=== PATIENT | female | born 1960 | race African-American/Black ===

== ENCOUNTER → 2018-07-09 | Emergency (ER) | payer OTHER ==
[~2018-07-09] VITALS: Ht 172.7 cm; Wt 81.6 kg
[~2018-07-09] MED LIST: ACETAMINOPHEN-1 EAC1 ORAL; AFRIN NASAL SPR30 ML NASAL; AMOXICILLI400 MG/5 M ORAL; AUGMENTIN 875-1 EAC1 ORAL; CLINDAMYCIN HC300 MG ORAL; NORCO 5-325 TA1 EACH ORAL; PERCOCET 5-3251 EACH ORAL; PRILOSEC20 MG ORAL; TRAMADOL HCL50 MG ORAL; TYLENOL EXTRA500 MG ORAL; Tylenol #3 tab (300mg/30mg) ORAL ONE; ZOFRAN4 MG ORAL
--- NOTE | 2018-07-09 18:48 | Emergency Room Report ---
History of Present Illness General Chief Complaint: To Be Triaged Present Illness HPI 58 YO Female presents to the ED c/o 03/07 in severity sharp right inner ear pain with nasal congestion x 1 week. pt. has been using abx ear drops without relief. reports only low grade fevers. Pt. reports muffled hearing in the affected ear. Denies q-tip use or ear trauma. Pt. also reports ST x 4 days. Denies Ear d/c. Denies neck pain or stiffness. Denies HOWARD. Allergies: Coded Allergies: NO KNOWN ALLERGIES (Unverified Allergy, Unknown, 07/09/18) Patient History Past Medical History: see triage record Past Surgical History: none Pertinent Family History: none Now: No Reviewed Nursing Documentation: PMH: Agreed; PSxH: Agreed Review of Systems All Other Systems: negative except mentioned in HPI Physical Exam Sp02 EP Interpretation: reviewed, normal General Appearance: no apparent distress, alert, GCS 15, non-toxic Head: normocephalic, atraumatic Eyes: bilateral eye normal inspection, bilateral eye PERRL ENT: hearing grossly normal, normal pharynx, normal voice, moist mucus membranes, nasal congestion, other - Right TM is bulging. irregular pneumatic exam. no D/c Noted. Neck: full range of motion Respiratory: lungs clear, normal breath sounds, speaking full sentences Cardiovascular #1: regular rate, rhythm Musculoskeletal: back normal, gait/station normal, normal range of motion, non- tender Neurologic: alert, oriented x3, responsive, motor strength/tone normal, sensory intact, speech normal, grossly normal Psychiatric: judgement/insight normal Skin: normal color, no rash, warm/dry, well hydrated Lymphatic: no adenopathy Medical Decision Making PA Attestation Dr. muniz is my supervising Physician whom patient management has been discussed with. Diagnostic Impression: Primary Impression: Otitis media Qualified Codes: H66.90 - Otitis media, unspecified, unspecified ear Additional Impression: Tympanic membrane irritation Qualified Codes: H73.91 - Unspecified disorder of tympanic membrane, right ear ER Course 58 YO Female presents to the ED c/o 03/07 in severity sharp right inner ear pain with nasal congestion x 1 week. pt. has been using abx ear drops without relief. reports only low grade fevers. Pt. reports muffled hearing in the affected ear. Denies q-tip use or ear trauma. Pt. also reports ST x 4 days. Denies Ear d/c. Denies neck pain or stiffness. Denies HOWARD. Ddx considered but are not limited to OM, OE, mastoiditis, TM perforation, FB Vital signs: are WNL, pt. is afebrile H&PE are most consistent with otitis media ORDERS: none required at this time, the diagnosis is clinical -OTOSCOPY: Right TM is bulging. irregular pneumatic exam. no D/c Noted. ED INTERVENTIONS: None required at this time. DISCHARGE: At this time pt. is stable for d/c to home. With PO ABX. Will provide printed patient care instructions, and any necessary prescriptions. Care plan and follow up instructions have been discussed with the patient prior to discharge. Disposition: HOME, SELF-CARE Condition: Stable Scripts Oxymetazoline HCl (Afrin) 15 Ml [place] 2 SPRAY NASAL TWICE A DAY, #15 ML Prov: Scarlett Richard 07/09/18 Acetaminophen* (TYLENOL EXTRA STRENGTH*) 500 Mg Tablet 500 MG ORAL Q6H, #20 TAB 0 Refills Prov: Scarlett Richard 07/09/18 Acetaminophen With Codeine (T#3) (TYLENOL #3 TAB*) Y Tab 1 TAB ORAL Q6HR PRN for For Pain, #10 TAB Prov: Scarlett Richard 07/09/18 Amoxicillin/Potassium Clav 875-125* (AUGMENTIN 875-125 TABLET*) 1 Each Tablet 1 TAB ORAL TWICE A DAY for 10 Days, #20 TAB Prov: Scarlett Richard 07/09/18 Patient Instructions: Otitis Media, Adult, [id number] Additional Instructions: Take medications as directed. Follow up with an ENT SPECIALIST 3-5 days, even if your symptoms have resolved. --Please review list of primary care clinics, if you do not already have a primary care provider Return sooner to ED if new symptoms occur, or current symptoms become worse. Do not drink alcohol, drive, or operate heavy machinery while taking Tylenol # 3 as this may cause drowsiness. - Please note that this Emergency Department Report was dictated using [employer] sales representative technology software, occasionally this can lead to erroneous entry secondary to interpretation by the dictation equipment. Scarlett Richard Jul 09, 2018 18:48
[2018-07-09 18:53] VITALS: BP 169/95
--- NOTE | 2018-07-09 18:53 | NUR ---
ED Nurse Note: a/ox4. ambulated in to ER due to right earache and headache 02/04. Per pt, she went to different ER last wednesday and was prescribed amoxicilin 500mg but did not finish the med. Per pt, she did not finish the med because it did not relieve the symptoms.
== END | disposition home or self-care (01) ==
LOC: EMR 19:53
DX: H66.91 Otitis media, unspecified, right ear (principal); H73.91 Unspecified disorder of tympanic membrane, right ear
CPT/HCPCS: 99283